=== PATIENT | female | born 1940 | race Caucasian/White ===

== ENCOUNTER 2021-08-10 17:05 | Inpatient (IN) | payer MEDICARE ==
[~2021-08-10] VITALS: Ht 160 cm; Wt 54.4 kg
[2021-08-10] MEDS ORDERED: AMLO1TAB24 (17:15)
[2021-08-10] MEDS ORDERED: MORPHINE 4 MG/ML 1ML VIAL/SYRINGE (J2270) IV PRN ×2 (17:45→21:10)
[2021-08-10] MEDS ORDERED: NS 1,000 ML IV SCH (17:45)
[2021-08-10] MEDS ORDERED: ONDANSETRON 4MG/2ML VIAL IV ONE (17:45)
[2021-08-10 18:11] LABS: BASO % 0.1 % (0.0-1.0); HEMATOCRIT 36.2 % (36.0-47.0); HEMOGLOBIN 10.9 g/dl (12.0-15.5); LYMPH # 0.3 10^3/uL (1.5-5.0); LYMPH % 2.9 % (24.0-44.0); MEAN CORPUSCULAR HEMOGLOBIN 21.3 pg (27.0-33.0); MEAN CORPUSCULAR HGB CONC 30.1 g/dl (32.0-36.5); MEAN CORPUSCULAR VOLUME 70.8 fl (80.0-96.0); MONO # 0.4 10^3/uL (0.0-0.8); MONO % 4.2 % (2.0-8.0); NEUTROPHILS # 8.9 10^3/uL (1.5-8.5); NEUTROPHILS % 92.4 % (36.0-66.0); PLATELET COUNT, AUTOMATED 773 10^3/uL (150-450); RED BLOOD COUNT 5.11 10^6/uL (4.00-5.40); WHITE BLOOD COUNT 9.7 10^3/uL (4.0-10.0)
[2021-08-10] MEDS ORDERED: ISOVUE-370 76% 100ML VIAL As Ordered ONE (18:25)
[2021-08-10 18:43] LABS: ALBUMIN 2.5 GM/DL (3.2-5.2); ALT/SGPT 14 U/L (12-78); BILIRUBIN,DIRECT < 0.1 MG/DL (0.0-0.2); BILIRUBIN,TOTAL 0.6 MG/DL (0.2-1.0); LIPASE 33 U/L (73-393); TOTAL PROTEIN 6.9 GM/DL (6.4-8.2)
[2021-08-10] MEDS ORDERED: PIPERACILLIN/TAZOBACTAM SOD 4.5 GM in D5W MINI-BAG PLUS 50 ML IV ONE (20:10)
[2021-08-10] MEDS ORDERED: HOME MED LIST COMPLETE! XX SCH (20:10)
[2021-08-10] MEDS ORDERED: NS 1,000 ML IV ONE (20:15)
[2021-08-10 20:57] LABS: RSV AMPLIFICATION NEGATIVE (NEGATIVE)
[2021-08-10] MEDS ORDERED: ONDANSETRON 4MG/2ML VIAL IV PRN (21:10)
[2021-08-10] MEDS ORDERED: ROCURONIUM BROMIDE 50 MG/5 ML VIAL As Ordered ONE ×2 (21:30→23:01)
[2021-08-10] MEDS ORDERED: LIDOCAINE 2% 100MG/5ML SDV (FOR ANES.) As Ordered ONE (21:30)
[2021-08-10] MEDS ORDERED: propofoL 200 MG/20 ML VIAL As Ordered ONE (21:30)
[2021-08-10] MEDS ORDERED: fentaNYL 100 MCG/2 ML INJECTION As Ordered ONE (21:31)
[2021-08-10] MEDS ORDERED: dexameTHASONE 4 MG/ML 1ML VIAL (J1100 PER 1MG) As Ordered ONE (21:31)
[2021-08-10] MEDS ORDERED: ONDANSETRON 4MG/2ML VIAL As Ordered ONE (21:31)
[2021-08-10] MEDS ORDERED: ZOSYN 3.375GM VIAL As Ordered ONE (21:47)
[2021-08-10] MEDS ORDERED: BACITRACIN OINTMENT 30GM TUBE As Ordered ONE (21:58)
[2021-08-10] MEDS ORDERED: ACETAMINOPHEN 1000MG 100ML IV BTL (OFIRMEV) (J0131 PER 10MG) As Ordered ONE (22:22)
[2021-08-10] MEDS ORDERED: SUGAMMADEX SODIUM 500 MG/5 ML VIAL (BRIDION) As Ordered ONE (22:34)
[2021-08-10] MEDS ORDERED: KETOROLAC 60MG 2ML VIAL As Ordered ONE (22:34)
[2021-08-10] MEDS ORDERED: PHENYLephrine 500MCG 5ML (100MCG/ML) SYRINGE As Ordered ONE (22:46)
[2021-08-10] MEDS ORDERED: PIPERACILLIN/TAZOBACTAM SOD 3.375 GM in D5W MINI-BAG PLUS 50 ML IV SCH (23:00)
[2021-08-11] VITALS (10 sets, daily range): BP systolic 133–167; BP diastolic 66–86
[2021-08-11] MEDS ORDERED: fentaNYL 100 MCG/2 ML INJECTION As Ordered ONE (00:36)
[2021-08-11] MEDS: fentaNYL 100 MCG/2 ML INJECTION IV PRN ×2 (00:37→00:43)
[2021-08-11] MEDS ORDERED: MEPERIDINE INJ 25 MG/ML VIAL (J2175) IV PRN (00:50)
[2021-08-11] MEDS ORDERED: LR 1,000 ML IV SCH (00:50)
[2021-08-11] MEDS ORDERED: HYDROMORPHONE HCL 0.5 MG/ 0.5 ML SYRINGE (J1170 PER 1) IV PRN (00:50)
[2021-08-11] MEDS ORDERED: ONDANSETRON 4MG/2ML VIAL IV PRN (00:50)
[2021-08-11] MEDS: NS 1,000 ML IV SCH ×3 (01:41→13:58)
[2021-08-11] MEDS ORDERED: GLUCAGON INJ 1MG VIAL SC PRN (02:20)
[2021-08-11] MEDS ORDERED: DEXTROSE 50% 50 ML SYRINGE IV PRN (02:20)
[2021-08-11] MEDS ORDERED: GLUCOSE 4GM CHEW TABLET PO PRN (02:20)
[2021-08-11 04:07] LABS: HEMOGLOBIN A1c 5.6 %
[2021-08-11 04:08] LABS: HEMATOCRIT 31.1 % (36.0-47.0); HEMOGLOBIN 9.7 g/dl (12.0-15.5); MEAN CORPUSCULAR HEMOGLOBIN 21.7 pg (27.0-33.0); MEAN CORPUSCULAR HGB CONC 31.2 g/dl (32.0-36.5); MEAN CORPUSCULAR VOLUME 69.6 fl (80.0-96.0); RED BLOOD COUNT 4.47 10^6/uL (4.00-5.40); WHITE BLOOD COUNT 13.4 10^3/uL (4.0-10.0)
[2021-08-11 04:09] LABS: PLATELET COUNT, AUTOMATED 642 10^3/uL (150-450)
[2021-08-11 06:02] LABS: ALBUMIN 1.9 GM/DL (3.2-5.2); ALT/SGPT 16 U/L (12-78); BILIRUBIN,TOTAL 0.5 MG/DL (0.2-1.0); BLOOD UREA NITROGEN 19 MG/DL (7-18); CALCIUM LEVEL 7.7 MG/DL (8.8-10.2); CARBON DIOXIDE LEVEL 26 MEQ/L (21-32); CHLORIDE LEVEL 108 MEQ/L (98-107); FERRITIN 79 NG/ML (8-252); GLOMERULAR FILTRATION RATE > 60.0 (>32); GLUCOSE, FASTING 152 MG/DL (70-100); IRON (FE) 7 UG/DL (50-170); MAGNESIUM LEVEL 2.3 MG/DL (1.8-2.4); PERCENT SATURATION 3.5 % (13.2-45.0); POTASSIUM SERUM 4.3 MEQ/L (3.5-5.1); SODIUM LEVEL 140 MEQ/L (136-145); TOTAL IRON BINDING CAPACITY 199 UG/DL (250-450); TOTAL PROTEIN 5.1 GM/DL (6.4-8.2)
[2021-08-11] MEDS: PANTOPRAZOLE 40MG VIAL (C9113 PER 1) IV SCH (08:35)
[2021-08-11] MEDS: SENOKOT S TAB PO SCH ×2 (08:36→20:32)
[2021-08-11] MEDS: PIPERACILLIN/TAZOBACTAM SOD 3.375 GM in D5W MINI-BAG PLUS 50 ML IV SCH ×3 (08:36→20:32)
[2021-08-11] MEDS ORDERED: ENOXAPARIN 40MG/0.4ML SYRINGE (J1650 PER 10MG) SC SCH (09:00)
[2021-08-11 13:41] LABS: VITAMIN B12 LEVEL 477 PG/ML (247-911)
[2021-08-11 13:42] LABS: FOLATE 10.9 NG/ML (>5.4)
[2021-08-11] MEDS: KETOROLAC 30 MG/ML 1ML VIAL IV PRN (13:58)
[2021-08-11] MEDS: amLODIPine 5 MG TAB PO SCH (15:14)
[2021-08-11] MEDS: D5W/0.9% SODIUM CHLORIDE 1,000 ML IV SCH (21:15)
[2021-08-12 02:00] VITALS: BP 142/76
[2021-08-12] MEDS: PIPERACILLIN/TAZOBACTAM SOD 3.375 GM in D5W MINI-BAG PLUS 50 ML IV SCH ×4 (03:42→21:12)
[2021-08-12] MEDS: D5W/0.9% SODIUM CHLORIDE 1,000 ML IV SCH ×2 (04:33→13:49)
[2021-08-12 06:00] VITALS: BP 143/76
[2021-08-12 06:33] LABS: HEMATOCRIT 28.1 % (36.0-47.0); HEMOGLOBIN 8.6 g/dl (12.0-15.5); MEAN CORPUSCULAR HEMOGLOBIN 21.4 pg (27.0-33.0); MEAN CORPUSCULAR HGB CONC 30.6 g/dl (32.0-36.5); MEAN CORPUSCULAR VOLUME 69.9 fl (80.0-96.0); PLATELET COUNT, AUTOMATED 644 10^3/uL (150-450); RED BLOOD COUNT 4.02 10^6/uL (4.00-5.40); WHITE BLOOD COUNT 12.2 10^3/uL (4.0-10.0)
[2021-08-12 06:54] LABS: ALBUMIN 1.7 GM/DL (3.2-5.2); ALT/SGPT 12 U/L (12-78); BILIRUBIN,TOTAL 0.4 MG/DL (0.2-1.0); BLOOD UREA NITROGEN 24 MG/DL (7-18); CALCIUM LEVEL 7.6 MG/DL (8.8-10.2); CARBON DIOXIDE LEVEL 25 MEQ/L (21-32); CHLORIDE LEVEL 114 MEQ/L (98-107); CREATININE FOR GFR 0.41 MG/DL (0.55-1.30); GLOMERULAR FILTRATION RATE > 60.0 (>32); GLUCOSE, FASTING 137 MG/DL (70-100); POTASSIUM SERUM 3.7 MEQ/L (3.5-5.1); SODIUM LEVEL 143 MEQ/L (136-145); TOTAL PROTEIN 4.7 GM/DL (6.4-8.2)
[2021-08-12] MEDS: SENOKOT S TAB PO SCH ×2 (09:34→21:11)
[2021-08-12] MEDS: PANTOPRAZOLE 40MG VIAL (C9113 PER 1) IV SCH (09:34)
[2021-08-12] MEDS: ENOXAPARIN 30MG/0.3ML SYRINGE (J1650 PER 10MG) SC SCH (09:34)
[2021-08-12] MEDS: amLODIPine 5 MG TAB PO SCH (09:35)
[2021-08-12 14:00] VITALS: BP 156/80
[2021-08-12 20:00] VITALS: BP 174/90
[2021-08-12 22:00] VITALS: BP 174/90
[2021-08-12] MEDS: KETOROLAC 30 MG/ML 1ML VIAL IV PRN (22:48)
[2021-08-12] MEDS ORDERED: SIMETHICONE 80MG CHEW TAB PO ONE (23:00)
[2021-08-13] MEDS ORDERED: **hydrALAZINE** 10 MG TAB PO ONE (02:00)
[2021-08-13] MEDS: D5W/0.9% SODIUM CHLORIDE 1,000 ML IV SCH (03:07)
[2021-08-13] MEDS: PIPERACILLIN/TAZOBACTAM SOD 3.375 GM in D5W MINI-BAG PLUS 50 ML IV SCH ×4 (03:07→20:19)
[2021-08-13 06:00] VITALS: BP 168/77
[2021-08-13 06:30] LABS: HEMATOCRIT 32.5 % (36.0-47.0); HEMOGLOBIN 9.9 g/dl (12.0-15.5); MEAN CORPUSCULAR HEMOGLOBIN 21.4 pg (27.0-33.0); MEAN CORPUSCULAR HGB CONC 30.5 g/dl (32.0-36.5); MEAN CORPUSCULAR VOLUME 70.2 fl (80.0-96.0); PLATELET COUNT, AUTOMATED 744 10^3/uL (150-450); RED BLOOD COUNT 4.63 10^6/uL (4.00-5.40)
[2021-08-13 06:50] LABS: ALBUMIN 1.7 GM/DL (3.2-5.2); ALT/SGPT 11 U/L (12-78); BILIRUBIN,TOTAL 0.3 MG/DL (0.2-1.0); BLOOD UREA NITROGEN 19 MG/DL (7-18); CALCIUM LEVEL 7.6 MG/DL (8.8-10.2); CARBON DIOXIDE LEVEL 20 MEQ/L (21-32); CHLORIDE LEVEL 116 MEQ/L (98-107); CREATININE FOR GFR 0.49 MG/DL (0.55-1.30); GLOMERULAR FILTRATION RATE > 60.0 (>32); GLUCOSE, FASTING 141 MG/DL (70-100); POTASSIUM SERUM 3.5 MEQ/L (3.5-5.1); PREALBUMIN 6.9 MG/DL (20.0-40.0); SODIUM LEVEL 143 MEQ/L (136-145); TOTAL PROTEIN 4.8 GM/DL (6.4-8.2)
[2021-08-13] MEDS ORDERED: POTASSIUM CHLORIDE INJ 20 MEQ in D5W/0.45% SODIUM CHLORIDE 1,000 ML IV SCH (07:45)
[2021-08-13] MEDS: KCL 40MEQ IN D5/0.45NS 1000ML 1,000 ML IV SCH (08:41)
[2021-08-13] MEDS: ENOXAPARIN 30MG/0.3ML SYRINGE (J1650 PER 10MG) SC SCH (08:42)
[2021-08-13] MEDS: PANTOPRAZOLE 40MG VIAL (C9113 PER 1) IV SCH (08:42)
[2021-08-13] MEDS ORDERED: LISINOPRIL *2.5 MG* TAB PO SCH (10:25)
[2021-08-13 14:00] VITALS: BP 172/72
[2021-08-13] MEDS: **hydrALAZINE HCL** 25 MG TAB PO PRN (14:14)
[2021-08-13 22:00] VITALS: BP 174/78
[2021-08-14] MEDS: PIPERACILLIN/TAZOBACTAM SOD 3.375 GM in D5W MINI-BAG PLUS 50 ML IV SCH ×4 (03:11→21:12)
[2021-08-14] MEDS: KCL 40MEQ IN D5/0.45NS 1000ML 1,000 ML IV SCH ×2 (04:31→08:42)
[2021-08-14 06:00] VITALS: BP 177/75
[2021-08-14 06:31] LABS: HEMATOCRIT 31.7 % (36.0-47.0); MEAN CORPUSCULAR HEMOGLOBIN 22.1 pg (27.0-33.0); MEAN CORPUSCULAR HGB CONC 31.5 g/dl (32.0-36.5); MEAN CORPUSCULAR VOLUME 70.1 fl (80.0-96.0); PLATELET COUNT, AUTOMATED 789 10^3/uL (150-450); RED BLOOD COUNT 4.52 10^6/uL (4.00-5.40); WHITE BLOOD COUNT 12.4 10^3/uL (4.0-10.0)
[2021-08-14] MEDS: **hydrALAZINE HCL** 25 MG TAB PO PRN (06:52)
[2021-08-14 07:06] LABS: ALBUMIN 1.7 GM/DL (3.2-5.2); ALT/SGPT 15 U/L (12-78); BILIRUBIN,TOTAL 0.7 MG/DL (0.2-1.0); BLOOD UREA NITROGEN 16 MG/DL (7-18); CALCIUM LEVEL 7.6 MG/DL (8.8-10.2); CARBON DIOXIDE LEVEL 23 MEQ/L (21-32); CHLORIDE LEVEL 115 MEQ/L (98-107); CREATININE FOR GFR 0.43 MG/DL (0.55-1.30); GLOMERULAR FILTRATION RATE > 60.0 (>32); GLUCOSE, FASTING 104 MG/DL (70-100); POTASSIUM SERUM 3.8 MEQ/L (3.5-5.1); SODIUM LEVEL 143 MEQ/L (136-145); TOTAL PROTEIN 4.8 GM/DL (6.4-8.2)
[2021-08-14] MEDS: PANTOPRAZOLE 40MG VIAL (C9113 PER 1) IV SCH (08:23)
[2021-08-14] MEDS: lisinopriL 5 MG TAB PO SCH (08:25)
[2021-08-14] MEDS: ENOXAPARIN 30MG/0.3ML SYRINGE (J1650 PER 10MG) SC SCH (08:26)
[2021-08-14 14:00] VITALS: BP 156/76
[2021-08-14] MEDS: AMINO AC/ELECTROLYTE/DEX/CALC 1,000 ML IV SCH (17:22)
[2021-08-14] MEDS ORDERED: FAT EMULSION IV 20% 500 ML IV SCH (18:00)
[2021-08-14 20:19] VITALS: BP 122/68
[2021-08-14 22:40] LABS: BLOOD UREA NITROGEN 14 MG/DL (7-18); CALCIUM LEVEL 7.5 MG/DL (8.8-10.2); CARBON DIOXIDE LEVEL 23 MEQ/L (21-32); CHLORIDE LEVEL 112 MEQ/L (98-107); GLOMERULAR FILTRATION RATE > 60.0 (>32); GLUCOSE, FASTING 109 MG/DL (70-100); POTASSIUM SERUM 3.6 MEQ/L (3.5-5.1); SODIUM LEVEL 140 MEQ/L (136-145)
[2021-08-15] MEDS: PIPERACILLIN/TAZOBACTAM SOD 3.375 GM in D5W MINI-BAG PLUS 50 ML IV SCH ×4 (01:07→20:41)
[2021-08-15 04:52] VITALS: BP 157/80
[2021-08-15] MEDS: AMINO AC/ELECTROLYTE/DEX/CALC 1,000 ML IV SCH ×2 (06:19→18:14)
[2021-08-15 06:43] LABS: HEMATOCRIT 31.2 % (36.0-47.0); HEMOGLOBIN 9.8 g/dl (12.0-15.5); MEAN CORPUSCULAR HEMOGLOBIN 21.7 pg (27.0-33.0); MEAN CORPUSCULAR HGB CONC 31.4 g/dl (32.0-36.5); MEAN CORPUSCULAR VOLUME 69.2 fl (80.0-96.0); PLATELET COUNT, AUTOMATED 779 10^3/uL (150-450); RED BLOOD COUNT 4.51 10^6/uL (4.00-5.40); WHITE BLOOD COUNT 12.6 10^3/uL (4.0-10.0)
[2021-08-15 07:12] LABS: ALBUMIN 1.7 GM/DL (3.2-5.2); ALT/SGPT 11 U/L (12-78); BILIRUBIN,TOTAL 0.6 MG/DL (0.2-1.0); BLOOD UREA NITROGEN 14 MG/DL (7-18); CALCIUM LEVEL 7.5 MG/DL (8.8-10.2); CARBON DIOXIDE LEVEL 23 MEQ/L (21-32); CHLORIDE LEVEL 111 MEQ/L (98-107); CREATININE FOR GFR 0.35 MG/DL (0.55-1.30); GLOMERULAR FILTRATION RATE > 60.0 (>32); GLUCOSE, FASTING 98 MG/DL (70-100); POTASSIUM SERUM 3.9 MEQ/L (3.5-5.1); SODIUM LEVEL 142 MEQ/L (136-145); TOTAL PROTEIN 4.6 GM/DL (6.4-8.2)
[2021-08-15 07:30] VITALS: BP 159/83
[2021-08-15] MEDS: ENOXAPARIN 30MG/0.3ML SYRINGE (J1650 PER 10MG) SC SCH (10:00)
[2021-08-15] MEDS: lisinopriL 5 MG TAB PO SCH (10:00)
[2021-08-15] MEDS: PANTOPRAZOLE 40MG VIAL (C9113 PER 1) IV SCH (10:01)
[2021-08-15] MEDS: FUROSEMIDE 40MG/4ML VIAL (J1940) IV SCH (11:05)
[2021-08-15 14:30] VITALS: BP 116/70
[2021-08-15 15:23] LABS: BLOOD UREA NITROGEN 15 MG/DL (7-18); CALCIUM LEVEL 7.3 MG/DL (8.8-10.2); CARBON DIOXIDE LEVEL 25 MEQ/L (21-32); CHLORIDE LEVEL 107 MEQ/L (98-107); CREATININE FOR GFR 0.53 MG/DL (0.55-1.30); GLOMERULAR FILTRATION RATE > 60.0 (>32); GLUCOSE, FASTING 122 MG/DL (70-100); MAGNESIUM LEVEL 2.1 MG/DL (1.8-2.4); POTASSIUM SERUM 3.1 MEQ/L (3.5-5.1); SODIUM LEVEL 139 MEQ/L (136-145)
[2021-08-15] MEDS ORDERED: POTASSIUM CHLORIDE 10% LIQ 20 MEQ/15 ML UDC PO ONE (16:00)
[2021-08-15] MEDS ORDERED: FAT EMULSION IV 20% 500 ML IV SCH (18:00)
[2021-08-15 22:00] VITALS: BP 144/90
[2021-08-16] VITALS (7 sets, daily range): BP systolic 127–159; BP diastolic 60–86
[2021-08-16] MEDS: PIPERACILLIN/TAZOBACTAM SOD 3.375 GM in D5W MINI-BAG PLUS 50 ML IV SCH ×4 (02:34→20:33)
[2021-08-16 06:44] LABS: HEMATOCRIT 30.4 % (36.0-47.0); HEMOGLOBIN 9.6 g/dl (12.0-15.5); MEAN CORPUSCULAR HEMOGLOBIN 21.5 pg (27.0-33.0); MEAN CORPUSCULAR HGB CONC 31.6 g/dl (32.0-36.5); PLATELET COUNT, AUTOMATED 771 10^3/uL (150-450); RED BLOOD COUNT 4.47 10^6/uL (4.00-5.40)
[2021-08-16 07:12] LABS: ALBUMIN 1.8 GM/DL (3.2-5.2); ALT/SGPT 13 U/L (12-78); BILIRUBIN,TOTAL 0.3 MG/DL (0.2-1.0); BLOOD UREA NITROGEN 13 MG/DL (7-18); CALCIUM LEVEL 7.3 MG/DL (8.8-10.2); CARBON DIOXIDE LEVEL 26 MEQ/L (21-32); CHLORIDE LEVEL 107 MEQ/L (98-107); CREATININE FOR GFR 0.36 MG/DL (0.55-1.30); GLOMERULAR FILTRATION RATE > 60.0 (>32); GLUCOSE, FASTING 97 MG/DL (70-100); SODIUM LEVEL 139 MEQ/L (136-145); TOTAL PROTEIN 4.6 GM/DL (6.4-8.2)
[2021-08-16] MEDS: AMINO AC/ELECTROLYTE/DEX/CALC 1,000 ML IV SCH (08:00)
[2021-08-16] MEDS ORDERED: ENOXAPARIN 40MG/0.4ML SYRINGE (J1650 PER 10MG) SC SCH (09:00)
[2021-08-16] MEDS: PANTOPRAZOLE 40MG VIAL (C9113 PER 1) IV SCH (09:07)
[2021-08-16] MEDS: FUROSEMIDE 40MG/4ML VIAL (J1940) IV SCH (09:08)
[2021-08-16] MEDS: lisinopriL 5 MG TAB PO SCH (09:09)
[2021-08-16] MEDS: amLODIPine 5 MG TAB PO SCH (09:11)
[2021-08-16] MEDS ORDERED: atenoloL 25 MG TAB PO ONE (11:35)
[2021-08-16 12:41] LABS: FREE THYROXINE INDEX 3.2 % (1.3-4.8); T UPTAKE 45 % (30-39); THYROXINE (T4) 7.1 UG/DL (4.5-12.0)
[2021-08-16] MEDS ORDERED: diltiaZEM 125 MG in NS 100 ML IV SCH (14:00)
[2021-08-16] MEDS: METOPROLOL TART 25 MG TABLET PO SCH (17:56)
[2021-08-16] MEDS: APIXABAN 2.5 MG TAB (ELIQUIS) PO SCH (20:45)
[2021-08-17] MEDS: PIPERACILLIN/TAZOBACTAM SOD 3.375 GM in D5W MINI-BAG PLUS 50 ML IV SCH ×4 (01:47→20:57)
[2021-08-17 04:25] VITALS: BP 131/68
[2021-08-17 05:35] LABS: HEMATOCRIT 29.1 % (36.0-47.0); HEMOGLOBIN 9.2 g/dl (12.0-15.5); MEAN CORPUSCULAR HEMOGLOBIN 21.6 pg (27.0-33.0); MEAN CORPUSCULAR HGB CONC 31.6 g/dl (32.0-36.5); MEAN CORPUSCULAR VOLUME 68.5 fl (80.0-96.0); RED BLOOD COUNT 4.25 10^6/uL (4.00-5.40); WHITE BLOOD COUNT 13.7 10^3/uL (4.0-10.0)
[2021-08-17 05:39] LABS: PLATELET COUNT, AUTOMATED 646 10^3/uL (150-450)
[2021-08-17] MEDS: METOPROLOL TART 25 MG TABLET PO SCH ×3 (05:57→11:39)
[2021-08-17 06:00] LABS: ALBUMIN 1.6 GM/DL (3.2-5.2); ALT/SGPT 13 U/L (12-78); BILIRUBIN,TOTAL 0.4 MG/DL (0.2-1.0); BLOOD UREA NITROGEN 12 MG/DL (7-18); CALCIUM LEVEL 7.2 MG/DL (8.8-10.2); CARBON DIOXIDE LEVEL 28 MEQ/L (21-32); CHLORIDE LEVEL 107 MEQ/L (98-107); CREATININE FOR GFR 0.33 MG/DL (0.55-1.30); GLOMERULAR FILTRATION RATE > 60.0 (>32); GLUCOSE, FASTING 78 MG/DL (70-100); POTASSIUM SERUM 3.7 MEQ/L (3.5-5.1); SODIUM LEVEL 141 MEQ/L (136-145); TOTAL PROTEIN 4.2 GM/DL (6.4-8.2)
[2021-08-17 08:15] VITALS: BP 163/74
[2021-08-17] MEDS: APIXABAN 2.5 MG TAB (ELIQUIS) PO SCH ×2 (08:20→20:56)
[2021-08-17] MEDS: lisinopriL 5 MG TAB PO SCH ×2 (08:20→11:45)
[2021-08-17] MEDS: amLODIPine 5 MG TAB PO SCH ×2 (08:21→11:46)
[2021-08-17] MEDS: FUROSEMIDE 40MG/4ML VIAL (J1940) IV SCH (08:21)
[2021-08-17] MEDS: PANTOPRAZOLE 40MG VIAL (C9113 PER 1) IV SCH (08:21)
[2021-08-17 11:47] VITALS: BP 120/56
[2021-08-17] MEDS ORDERED: ATEN25TA PO (14:12)
[2021-08-17] MEDS ORDERED: LISI10TA22 PO (14:12)
[2021-08-17] MEDS ORDERED: ELIQ2.5T PO (14:12)
[2021-08-17] MEDS: atenoloL 25 MG TAB PO SCH (14:18)
[2021-08-17 16:08] VITALS: BP 120/54
[2021-08-17 20:00] VITALS: BP 130/72
[2021-08-18] MEDS: PIPERACILLIN/TAZOBACTAM SOD 3.375 GM in D5W MINI-BAG PLUS 50 ML IV SCH (02:31)
[2021-08-18 04:11] VITALS: BP 141/70
[2021-08-18 08:26] VITALS: BP 141/65
[2021-08-18] MEDS: FUROSEMIDE 40MG/4ML VIAL (J1940) IV SCH (09:13)
[2021-08-18] MEDS: atenoloL 25 MG TAB PO SCH (09:13)
[2021-08-18] MEDS: PANTOPRAZOLE 40MG VIAL (C9113 PER 1) IV SCH (09:13)
[2021-08-18] MEDS: APIXABAN 2.5 MG TAB (ELIQUIS) PO SCH ×2 (09:13→20:43)
[2021-08-18 09:16] LABS: HEMATOCRIT 31.5 % (36.0-47.0); HEMOGLOBIN 9.9 g/dl (12.0-15.5); MEAN CORPUSCULAR HEMOGLOBIN 21.7 pg (27.0-33.0); MEAN CORPUSCULAR HGB CONC 31.4 g/dl (32.0-36.5); MEAN CORPUSCULAR VOLUME 69.1 fl (80.0-96.0); PLATELET COUNT, AUTOMATED 732 10^3/uL (150-450); RED BLOOD COUNT 4.56 10^6/uL (4.00-5.40); WHITE BLOOD COUNT 13.3 10^3/uL (4.0-10.0)
[2021-08-18 12:08] VITALS: BP 128/63
[2021-08-18 16:10] VITALS: BP 145/65
[2021-08-18 20:00] VITALS: BP 122/70
[2021-08-19] VITALS: BP 138/65
[2021-08-19 04:00] VITALS: BP 147/70
[2021-08-19 08:00] VITALS: BP 147/65
[2021-08-19 09:13] VITALS: BP 147/65
[2021-08-19] MEDS: atenoloL 25 MG TAB PO SCH (09:13)
[2021-08-19] MEDS: PANTOPRAZOLE 40MG VIAL (C9113 PER 1) IV SCH (09:14)
[2021-08-19] MEDS: FUROSEMIDE 40MG/4ML VIAL (J1940) IV SCH (09:14)
[2021-08-19] MEDS: APIXABAN 2.5 MG TAB (ELIQUIS) PO SCH (09:14)
[2021-08-19] MEDS ORDERED: BACITAB PO (11:21)
[2021-08-19] MEDS ORDERED: LACTOBACILLUS ACIDOPHILUS CAP (BACID) PO SCH (12:30)
[2021-08-20] MEDS ORDERED: PANTOPRAZOLE 20 MG TAB PO SCH (09:00)
== END 2021-08-19 14:07 | disposition home or self-care (01) | DRG 329 ==
LOC: M ED 17:05 → M SDC 20:24 → M ED INP 21:14 → M MSPAV 08-11 01:04 → M ICU 08-16 12:47 → M PCU 08-16 22:27
PROVIDERS: ADMIT Surgery; ATTEND Surgery
PROC: 0DBN0ZZ Excision of Sigmoid Colon, Open Approach (ICD-10-PCS; 2021-08-10)
PROC: 0D1N0Z4 Bypass Sigmoid Colon to Cutaneous, Open Approach (ICD-10-PCS; principal; 2021-08-10 20:21)
DX: K57.20 Diverticulitis of large intestine with perforation and abscess without bleeding (principal); K65.9 Peritonitis, unspecified; E46 Unspecified protein-calorie malnutrition; Z68.1 Body mass index [BMI] 19.9 or less, adult; I10 Essential (primary) hypertension; R73.03 Prediabetes; M06.9 Rheumatoid arthritis, unspecified; D50.9 Iron deficiency anemia, unspecified; I48.91 Unspecified atrial fibrillation; E88.09 Other disorders of plasma-protein metabolism, not elsewhere classified; Z66 Do not resuscitate; K76.89 Other specified diseases of liver; K52.9 Noninfective gastroenteritis and colitis, unspecified; D75.838 Other thrombocytosis; I49.49 Other premature depolarization; Z87.891 Personal history of nicotine dependence; Z20.822 Contact with and (suspected) exposure to COVID-19